=== PATIENT | male | born 1965 | race Caucasian/White ===

== ENCOUNTER 2016-05-18 23:50 | Observation (INO) | payer BC ==
[2016-05-19] MEDS ORDERED: ASPIRIN 81 MG CHEW PO STA (00:07)
[2016-05-19] MEDS ORDERED: NITROGLYCERIN OINT 1 INCH/GM PACKET TOPICAL STA (00:07)
--- NOTE | 2016-05-19 00:11 | ED ---
General Adult HPI - General Stated complaint: Heart Palp/SOB Time Seen by Provider: 05/19/16 00:00 Source: RN notes reviewed - History of Present Illness Initial comments: This is a 51-year-old male who has a past medical history significant for elevated cholesterol. Patient states he recently started medication for that. Patient states about a week ago he had a pain in the center of his chest lasts only a few seconds and he hasn't had it again. Patient states tonight while lying in bed he had a pain in the center of his chest again it didn't last longer than he became sweaty and short of breath and he states the sweatiness and the shortness of breath lasted about 5 minutes. Patient states at that point he got nervous and decided to come to the emergency department. Patient states currently he is not experiencing any chest pain or shortness of breath. Patient denies any radiation of the pain. Patient denies any nausea. Patient denies any abdominal pain patient denies nausea vomiting diarrhea. Patient denies any recent fever or chills or cough. Patient denies being lightheaded or dizzy. - Related Data Home Medications Medication Instructions Recorded Confirmed Atorvastatin Calcium [Lipitor] 10 mg PO HS 05/19/16 05/19/16 Multivitamins, Thera [Multivitamin] 1 tab PO DAILY 05/19/16 05/19/16 Allergies Allergy/AdvReac Type Severity Reaction Status Date / Time No Known Allergies Allergy Verified 05/19/16 00:10 Review of Systems ROS Statement: Those systems with pertinent positive or pertinent negative responses have been documented in the HPI. ROS Other: All systems not noted in ROS Statement are negative. General Exam - General Exam Comments Initial Comments: GENERAL: Patient is well-developed and well-nourished. Patient is nontoxic and well- hydrated and is in mild distress. ENT: Neck is soft and supple. No significant lymphadenopathy is noted. Oropharynx is clear. Moist mucous membranes. Neck has full range of motion without eliciting any pain. EYES: The sclera were anicteric and conjunctiva were pink and moist. Extraocular movements were intact and pupils were equal round and reactive to light. Eyelids were unremarkable. PULMONARY: Unlabored respirations. Good breath sounds bilaterally. No audible rales rhonchi or wheezing was noted. CARDIOVASCULAR: There is a regular rate and rhythm without any murmurs gallops or rubs. ABDOMEN: Soft and nontender with normal bowel sounds. No palpable organomegaly was noted. There is no palpable pulsatile mass. SKIN: Skin is clear with no lesions or rashes and otherwise unremarkable. NEUROLOGIC: Patient is alert and oriented x3. Cranial nerves II through XII are grossly intact. Motor and sensory are also intact. Normal speech, volume and content. Symmetrical smile. MUSCULOSKELETAL: Normal extremities with adequate strength and full range of motion. No lower extremity swelling or edema. No calf tenderness. LYMPHATICS: No significant lymphadenopathy is noted PSYCHIATRIC: Normal psychiatric evaluation. Normal interpersonal interactions appears functionally intact in deals appropriately with others. No signs of depression. No signs of anxiety. Course Vital Signs 05/18/16 05/19/16 23:55 01:17 Temperature 97.7 F Pulse Rate 72 76 Respiratory 18 16 Rate Blood Pressure 200/96 141/93 O2 Sat by Pulse 97 97 Oximetry Medical Decision Making - Medical Decision Making EKG shows normal sinus rhythm at 70 bpm. It was on a 56 QRS is 106 QT interval is 416 QTC is 449. Patient's EKG shows no ST segment elevation or depression. Patient had no chest pain while in the emergency department but because of the significant symptoms associated with his chest pain the diaphoresis and difficulty breathing I thought it best to keep him in the hospital repeat enzymes and have cardiology see him. I spoke with Dr. Ojeda and he was in agreement side wrote admitting orders and consult cardiology - Lab Data Result diagrams: 05/19/16 00:14 05/19/16 00:14 Lab Results 05/19/16 05/19/16 05/19/16 Range/Units 00:14 00:14 00:14 WBC 3.6 L (3.8-10.6) k/uL RBC 5.03 (4.30-5.90) m/uL Hgb 15.2 (13.0-17.5) gm/dL Hct 44.4 (39.0-53.0) % MCV 88.4 (80.0-100.0) fL MCH 30.3 (25.0-35.0) pg MCHC 34.2 (31.0-37.0) g/dL RDW 12.5 (11.5-15.5) % Plt Count 245 (150-450) k/uL Neutrophils % 56 % Lymphocytes % 32 % Monocytes % 6 % Eosinophils % 4 % Basophils % 1 % Neutrophils # 2.0 (1.3-7.7) k/uL Lymphocytes # 1.2 (1.0-4.8) k/uL Monocytes # 0.2 (0-1.0) k/uL Eosinophils # 0.1 (0-0.7) k/uL Basophils # 0.0 (0-0.2) k/uL PT (9.0-12.0) sec INR (<1.1) APTT (22.0-30.0) sec Sodium 142 (137-145) mmol/L Potassium 4.0 (3.5-5.1) mmol/L Chloride 106 (98-107) mmol/L Carbon Dioxide 25 (22-30) mmol/L Anion Gap 11 mmol/L BUN 16 (9-20) mg/dL Creatinine 0.90 (0.66-1.25) mg/dL Est GFR (MDRD) Af Amer >60 (>60 ml/min/1.73 sqM) Est GFR (MDRD) Non-Af >60 (>60 ml/min/1.73 sqM) Glucose 200 H (74-99) mg/dL Calcium 9.4 (8.4-10.2) mg/dL Magnesium 1.6 (1.6-2.3) mg/dL Total Bilirubin 0.4 (0.2-1.3) mg/dL AST 32 (17-59) U/L ALT 37 (21-72) U/L Alkaline Phosphatase 52 (38-126) U/L Total Creatine Kinase 128 (55-170) U/L CK-MB (CK-2) 2.1 (0.0-2.4) ng/mL CK-MB (CK-2) Rel Index 1.6 Troponin I <0.012 (0.000-0.034) ng/mL Total Protein 6.4 (6.3-8.2) g/dL Albumin 4.4 (3.5-5.0) g/dL 05/19/16 Range/Units 00:14 WBC (3.8-10.6) k/uL RBC (4.30-5.90) m/uL Hgb (13.0-17.5) gm/dL Hct (39.0-53.0) % MCV (80.0-100.0) fL MCH (25.0-35.0) pg MCHC (31.0-37.0) g/dL RDW (11.5-15.5) % Plt Count (150-450) k/uL Neutrophils % % Lymphocytes % % Monocytes % % Eosinophils % % Basophils % % Neutrophils # (1.3-7.7) k/uL Lymphocytes # (1.0-4.8) k/uL Monocytes # (0-1.0) k/uL Eosinophils # (0-0.7) k/uL Basophils # (0-0.2) k/uL PT 10.5 (9.0-12.0) sec INR 1.0 (<1.1) APTT 24.8 (22.0-30.0) sec Sodium (137-145) mmol/L Potassium (3.5-5.1) mmol/L Chloride (98-107) mmol/L Carbon Dioxide (22-30) mmol/L Anion Gap mmol/L BUN (9-20) mg/dL Creatinine (0.66-1.25) mg/dL Est GFR (MDRD) Af Amer (>60 ml/min/1.73 sqM) Est GFR (MDRD) Non-Af (>60 ml/min/1.73 sqM) Glucose (74-99) mg/dL Calcium (8.4-10.2) mg/dL Magnesium (1.6-2.3) mg/dL Total Bilirubin (0.2-1.3) mg/dL AST (17-59) U/L ALT (21-72) U/L Alkaline Phosphatase (38-126) U/L Total Creatine Kinase (55-170) U/L CK-MB (CK-2) (0.0-2.4) ng/mL CK-MB (CK-2) Rel Index Troponin I (0.000-0.034) ng/mL Total Protein (6.3-8.2) g/dL Albumin (3.5-5.0) g/dL Disposition Clinical Impression: Chest pain Disposition: ADMITTED IP TO THIS [facility] Time of Disposition: 01:26
[2016-05-19 00:26] LABS: Basophils % (A) 1 %; CH 32.3; CHCM 36.6; Eosinophils # (A) 0.1 k/uL (0-0.7); Eosinophils % (A) 4 %; HCT 44.4 % (39.0-53.0); HDW 2.81; HGB 15.2 gm/dL (13.0-17.5); Luc # (Auto) 0.08; Luc % (Auto) 2; Lymphocytes # (A) 1.2 k/uL (1.0-4.8); Lymphocytes % (A) 32 %; MCH 30.3 pg (25.0-35.0); MCHC 34.2 g/dL (31.0-37.0); MCV 88.4 fL (80.0-100.0); Mean Platelet Volume 6.3; Monocytes # (A) 0.2 k/uL (0-1.0); Monocytes % (A) 6 %; Neutrophils % (A) 56 %; RBC 5.03 m/uL (4.30-5.90); RDW 12.5 % (11.5-15.5); WBC 3.6 k/uL (3.8-10.6); WBC (Perox) 4.04
[2016-05-19 00:31] LABS: ALT 37 U/L (21-72); AST 32 U/L (17-59); Alkaline Phosphatase 52 U/L (38-126); Anion Gap 11 mmol/L; Blood Urea Nitrogen 16 mg/dL (9-20); Calcium 9.4 mg/dL (8.4-10.2); Carbon Dioxide 25 mmol/L (22-30); Chloride 106 mmol/L (98-107); Glucose 200 mg/dL (74-99); Magnesium 1.6 mg/dL (1.6-2.3); Non-African American GFR(MDRD) >60 (>60 ml/min/1.73 sqM); Partial Thromboplastin Time 24.8 sec (22.0-30.0); Prothrombin Time 10.5 sec (9.0-12.0); Sodium 142 mmol/L (137-145); Total Bilirubin 0.4 mg/dL (0.2-1.3); Total Protein 6.4 g/dL (6.3-8.2)
[2016-05-19 00:40] LABS: Creatine Kinase 128 U/L (55-170)
[2016-05-19 00:53] LABS: Creatine Kinase MB 2.1 ng/mL (0.0-2.4); Troponin I <0.012 ng/mL (0.000-0.034)
[2016-05-19] MEDS ORDERED: NITROGLYCERIN SL TABS 0.4 MG TAB SUBLINGUAL PRN (01:26)
--- NOTE | 2016-05-19 01:38 | XR ---
EXAMINATION TYPE: XR chest 2V DATE OF EXAM: 05/19/2016 12:34 AM COMPARISON: NONE HISTORY: History of chest discomfort TECHNIQUE: Frontal and lateral views of the chest are obtained. FINDINGS: There is no focal air space opacity, pleural effusion, or pneumothorax seen. The cardiac silhouette size is within normal limits. The osseous structures are intact. Mild degenerative drew es are present in the thoracic spine. IMPRESSION: No acute cardiopulmonary process.
[2016-05-19 02:13] VITALS: BMI 34.4
[2016-05-19] MEDS: NITROGLYCERIN OINT 1 INCH/GM PACKET TOPICAL SCH ×2 (06:18→12:14)
[2016-05-19 07:48] VITALS: RESP 18
[2016-05-19 08:00] LABS: Creatine Kinase 93 U/L (55-170)
[2016-05-19 08:09] LABS: Creatine Kinase MB 1.5 ng/mL (0.0-2.4); Troponin I <0.012 ng/mL (0.000-0.034)
--- NOTE | 2016-05-19 08:26 | P.CRDCN ---
History of Present Illness Consult date: 05/19/16 Chief complaint: Chest pain History of present illness: This is a pleasant 51-year-old gentleman who is very active with a past medical history significant for dyslipidemia came in to the emergency room with chest discomfort. He was in his usual state of health yesterday when he experienced very brief episode of chest discomfort, in the mid of the chest, he describes as an electrical/discomfort feeling in the mid of the chest lasted only for a few seconds. Subsequently he experienced sweating and weakness. No shortness of breath. No dizziness or lightheadedness. No syncope. The cardiac workup of EKG and enzymes came in to be unremarkable. I am proceeding with an exercise treadmill stress test and I will continue following up with him Past Medical History Past Medical History: Hyperlipidemia History of Any Multi-Drug Resistant Organisms: None Reported Past Surgical History: Tonsillectomy Past Anesthesia/Blood Transfusion Reactions: No Reported Reaction Past Psychological History: No Psychological Hx Reported Smoking Status: Never smoker Past Alcohol Use History: Occasional Past Drug Use History: None Reported - Past Family History Mother Family Medical History: Cancer Additional Family Medical History / Comment(s): Lung CA Father Family Medical History: Hyperlipidemia, Hypertension Medications and Allergies Home Medications Medication Instructions Recorded Confirmed Type Atorvastatin Calcium [Lipitor] 10 mg PO HS 05/19/16 05/19/16 History Christel 500 mg PO DAILY 05/19/16 05/19/16 History Gluc/Stas-MSM#1/C/[place]/Bor 1 tab PO DAILY 05/19/16 05/19/16 History [Glucosamine-Chondroitin Tablet] Multivitamins, Thera [Multivitamin] 1 tab PO DAILY 05/19/16 05/19/16 History Turmeric Root Extract [Turmeric] 500 mg PO DAILY 05/19/16 05/19/16 History Allergies Allergy/AdvReac Type Severity Reaction Status Date / Time No Known Allergies Allergy Verified 05/19/16 08:11 Physical Exam Vitals: Vital Signs Temp Pulse Pulse Resp BP BP BP 05/19/16 08:00 56 L 18 05/19/16 07:48 97.7 F 56 L 18 149/84 05/19/16 04:00 16 05/19/16 02:25 16 05/19/16 02:11 97.8 F 63 16 136/84 05/19/16 01:50 74 16 136/80 Pulse Ox 05/19/16 08:00 05/19/16 07:48 98 05/19/16 04:00 05/19/16 02:25 05/19/16 02:11 94 L 05/19/16 01:50 97 Intake and Output 05/18/16 05/19/16 05/19/16 22:59 06:59 14:59 Other: # Voids 1 Weight 108.8 kg - Constitutional General appearance: no acute distress - Respiratory Respiratory: bilateral: CTA - Cardiovascular Rhythm: regular Heart sounds: normal: S1, S2 Results 05/19/16 00:14 05/19/16 00:14 Cardiac Enzymes 05/19/16 Range/Units 06:40 CK-MB (CK-2) 1.5 (0.0-2.4) ng/mL Troponin I <0.012 (0.000-0.034) ng/mL Current Medications Generic Name Dose Route Start Last Admin Trade Name Freq PRN Reason Stop Dose Admin Aspirin 325 mg 05/20/16 09:00 Aspirin PO DAILY EMILIA Nitroglycerin 1 inch 05/19/16 06:00 05/19/16 06:18 Nitro-Bid Oint TOPICAL 1 inch Q6HR EMILIA Administration Nitroglycerin 0.4 mg 05/19/16 01:26 Nitrostat SUBLINGUAL Q5M PRN Chest Pain Intake and Output 05/18/16 05/19/16 05/19/16 22:59 06:59 14:59 Other: # Voids 1 Weight 108.8 kg Assessment and Plan Plan: Assessment #1 atypical chest discomfort #2 dyslipidemia Plan #1 the patient was ruled out for acute coronary event #2 I am proceeding with exercise treadmill stress test
[2016-05-19 12:06] VITALS: BP 161/80; PULSE 65; TEMP 97.5
--- NOTE | 2016-05-19 13:34 | EST ---
DATE OF SERVICE: 05/19/16 AGE: 51Y SEX: M HT: 70" WT: 239 lbs. Protocol [place]: Other: Stage: IV Dur. of Exercise: 9:30 *Heart Rate Blood Pressure *Rest: 70 Rest: 138/100 * *Max. Achieved: 147 Maximum BP: 199/58 85% PMHR: 142 100% PMHR: 167 *METS: 10.9 INDICATIONS: Chest pain. MEDICATIONS: Baseline EKG revealed normal sinus rhythm without significant ST-T changes. Patient walked on standard [place] protocol for 9-1/2 minutes, achieved a maximum heart rate of 147 beats per minute well above 85% of predicted maximal. He developed fatigue and shortness of breath, but did not have any angina or arrhythmia. EKG did not reveal any ST segment changes to indicate ischemia. By EKG is a negative stress test with fair exercise capacity.
--- NOTE | 2016-05-19 13:51 | P.HPIM ---
History of Present Illness H&P Date: 05/19/16 Chief Complaint: Chest pain This is a medical H&P and discharge summary combined: Patient is a 51-year-old male with past medical history significant for hyperlipidemia. Patient presented to the emergency department with complaints of chest pain that started while he was lying in bed in the center of his chest described as a "zing" only lasting a few seconds associated with nausea and diaphoresis. Cardiology consult was requested. Cardiac workup of EKG and enzymes were unremarkable. Patient underwent exercise treadmill stress test which was negative. Patient was deemed stable for discharge to home with follow-up in the outpatient setting. Discharge diagnoses: 1. Chest pain, noncardiac in origin. 2. Hyperlipidemia. The above impression and plan have been discussed and directed by Dr. Ojeda. Shae RÍOS acting as scribe for Dr. Ojeda. Past Medical History Past Medical History: Hyperlipidemia History of Any Multi-Drug Resistant Organisms: None Reported Past Surgical History: Tonsillectomy Past Anesthesia/Blood Transfusion Reactions: No Reported Reaction Past Psychological History: No Psychological Hx Reported Smoking Status: Never smoker Past Alcohol Use History: Occasional Past Drug Use History: None Reported - Past Family History Mother Family Medical History: Cancer Additional Family Medical History / Comment(s): Lung CA Father Family Medical History: Hyperlipidemia, Hypertension Medications and Allergies Home Medications Medication Instructions Recorded Confirmed Type RX: Atorvastatin Calcium [Lipitor] 10 mg PO HS 05/19/16 05/19/16 History RX: Christel 500 mg PO DAILY 05/19/16 05/19/16 History RX: Gluc/Stas-MSM#1/C/[place] 1 tab PO DAILY 05/19/16 05/19/16 History [Glucosamine-Chondroitin Tablet] RX: Multivitamins, Thera 1 tab PO DAILY 05/19/16 05/19/16 History [Multivitamin] RX: Turmeric Root Extract 500 mg PO DAILY 05/19/16 05/19/16 History [Turmeric] Allergies Allergy/AdvReac Type Severity Reaction Status Date / Time No Known Allergies Allergy Verified 05/19/16 08:11 Physical Exam Vitals: Vital Signs Temp Pulse Pulse Resp BP BP BP 05/19/16 12:00 97.5 F L 65 18 161/80 05/19/16 08:00 56 L 18 05/19/16 07:48 97.7 F 56 L 18 149/84 05/19/16 04:00 16 05/19/16 02:25 16 05/19/16 02:11 97.8 F 63 16 136/84 05/19/16 01:50 74 16 136/80 Pulse Ox 05/19/16 12:00 94 L 05/19/16 08:00 05/19/16 07:48 98 05/19/16 04:00 05/19/16 02:25 05/19/16 02:11 94 L 05/19/16 01:50 97 Intake and Output 05/18/16 05/19/16 05/19/16 22:59 06:59 14:59 Intake Total 118 Balance 118 Intake: Oral 118 Other: # Voids 1 Weight 108.8 kg GENERAL: Pt awake and alert, well-appearing, well-nourished, and in no acute distress. HEAD: Atraumatic, normocephalic. EYES: Pupils equal, round, and reactive to light, extraocular movements intact, sclera anicteric, conjunctiva are normal. ENT: Oropharynx clear without exudates. Moist mucous membranes. NECK:Normal range of motion, supple without lymphadenopathy or JVD. LUNGS: Breath sounds clear to auscultation bilaterally. No wheezes, rales, or rhonchi. HEART: Heart S1, S2, no S3 or S4. Regular rate and rhythm. No murmurs, rubs or gallops. ABDOMEN: Soft, nontender, nondistended, normoactive bowel sounds. No guarding, no rebound. No masses or organomegaly appreciated. EXTREMITIES: 2+ peripheral pulses. No edema, clubbing or cyanosis. No calf tenderness. NEUROLOGICAL: Pt oriented x 3. Cranial nerves II through XII grossly intact. Strength and sensation grossly intact. PSYCH: Normal mood, normal affect. SKIN: Warm, dry, intact. Normal turgor. No rashes or lesions. Results CBC & Chem 7: 05/19/16 00:14 05/19/16 00:14 Thrombosis Risk Factor Assmnt - DVT/VTE Prophylaxis DVT/VTE Prophylaxis: Low risk, early ambulation encouraged - Choose All That Apply Each Factor Represents 1 point: Age 41-60 years Thrombosis Risk Factor Assessment Total Risk Factor Score: 1 Thrombosis Risk Factor Assessment Level: Low Risk Assessment and Plan Plan: Discharge diagnoses: 1. Chest pain, noncardiac in origin. 2. Hyperlipidemia. The above impression and plan have been discussed and directed by James. Shae RÍOS acting as scribe for Dr. Ojeda.
[2016-05-19 14:00] LABS: Creatine Kinase 90 U/L (55-170)
[2016-05-19 14:14] LABS: Creatine Kinase MB 1.4 ng/mL (0.0-2.4); Troponin I <0.012 ng/mL (0.000-0.034)
[2016-05-20] MEDS ORDERED: ASPIRIN 325 MG TAB PO SCH (09:00)
== END 2016-05-19 14:40 | disposition home or self-care (01) ==
LOC: EC 23:50 → 3OBS 05-19 01:26
PROVIDERS: ADMIT Family Medicine; ATTEND Family Medicine
DX: R07.89 Other chest pain (principal); E78.5 Hyperlipidemia, unspecified; R61 Generalized hyperhidrosis; R06.02 Shortness of breath; Z79.899 Other long term (current) drug therapy; Z80.1 Family history of malignant neoplasm of trachea, bronchus and lung; Z82.49 Family history of ischemic heart disease and other diseases of the circulatory system
CPT/HCPCS: 99285; 36415; 93005; 93017; 80053; 82550; 82553; 83735; 84484; 85025; 85610; 85730; 71020; G0378

== ENCOUNTER → 2023-03-06 | Outpatient (CLI) | payer BC ==
[2023-03-06 21:07] LABS: Alternaria alternata IgE <0.10 kU/L; Aspergillus fumagatus IgE <0.10 kU/L; Birch IgE <0.10 kU/L; Cat Epith & Dander IgE <0.10 kU/L; Cladosporian herbarum IgE <0.10 kU/L; Clam IgE <0.10 kU/L; Cockroach IgE <0.10 kU/L; Codfish IgE <0.10 kU/L; Dermato. farinae IgE <0.10 kU/L; Dog Dander IgE <0.10 kU/L; Egg White IgE <0.10 kU/L; Elm IgE <0.10 kU/L; Maple (Box Elder) IgE <0.10 kU/L; Oak IgE <0.10 kU/L; Peanut IgE <0.10 kU/L; Ragweed,Common IgE <0.10 kU/L; Red Top (Bentgrass) IgE <0.10 kU/L; Scallop IgE <0.10 kU/L; Shrimp IgE <0.10 kU/L; Soybean IgE <0.10 kU/L; Walnut IgE (Food) <0.10 kU/L
== END | disposition home or self-care (01) ==
LOC: LABWHC1 09:59
PROVIDERS: ATTEND Internal Medicine Critical Care Medicine
DX: R05.9 Cough, unspecified (principal)
CPT/HCPCS: 36415; 82785; 85008; 86003

== ENCOUNTER 2023-04-29 12:47 | Day surgery (SDC) | payer BC ==
[2023-04-24 09:43] VITALS: BMI 37.3
[~2023-04-29 12:47] MED LIST: ATROPINE SULFATE 0.4 MG/ML 1 ML VIAL IM ONE; LACTATED RINGERS 1,000 ML IV SCH
[2023-04-29] MEDS ORDERED: LACTATED RINGERS 1,000 ML IV ONE (13:40)
[2023-04-29] MEDS ORDERED: hydrALAZINE HCL 20 MG/ML 1 ML VIAL IVP ONE (13:52)
[2023-04-29] MEDS ORDERED: GLYCOPYRROLATE 0.2 MG/ML 2 ML VIAL ONE (13:58)
[2023-04-29] MEDS ORDERED: PROPOFOL 10 MG/ML 20 ML VIAL IV ONE (13:58)
[2023-04-29] MEDS ORDERED: LIDOCAINE 1% INJ 10MG/ML (20 ML MDV) ONE (13:58)
[2023-04-29] MEDS ORDERED: KETAMINE HCL IN 0.9 % NACL 50 MG/5 ML SYRINGE ONE (13:58)
[2023-04-29] MEDS ORDERED: MIDAZOLAM 2 MG/2 ML VIAL ONE (13:58)
[2023-04-29] MEDS ORDERED: LIDOCAINE 2% INJ 20 MG/ML INTRATRACH ONE (14:03)
[2023-04-29 14:08] VITALS: TEMP 96.9
[2023-04-29 14:33] VITALS: PULSE 89; RESP 18
[2023-04-29 14:34] VITALS: BP 149/87
--- NOTE | 2023-04-29 21:29 | PCN ---
PROCEDURE NOTE PROCEDURE: Airway examination, therapeutic lavage, BAL bronchoscopy. PREOPERATIVE DIAGNOSIS: Chronic bronchitis and significant chronic secretions. POSTOPERATIVE DIAGNOSIS: Chronic bronchitis and significant chronic secretions. [employer] SENIOR SERGEANT: Dr. Argelia Javier. DESCRIPTION OF PROCEDURE: There was informed consent and universal timeout. The patient's procedure took place in [facility] room #1. Anesthesia provided general anesthesia. Once the patient was adequately sedated and being fully anesthetized, the bronchoscope was inserted through the right nostril. It passed through the right nasopharynx into the oropharynx. The hypopharynx was identified and topicalized. The hypopharyngeal structures, including anterior commissure, true cords, false cords, arytenoids, piriform sinuses, right and left, vallecula, epiglottis, all appeared relatively normal. The glottic opening was topicalized. The bronchoscope was pushed through the glottic opening into the trachea. There was a mild degree of tracheomalacia. There was some secretions noted throughout the trachea. They were rather thin. There was no tracheal mass or tumor. Tracheal virgil was sharp. Right and left mainstem were topicalized. The right upper lobe and its 3 segments, right middle lobe and its 2 segments, right lower lobe and its 5 segments, left upper lobe proper and its 2 segments, lingula and its 2 segments, and left lower lobe and its 4 segments all appeared relatively normal save for mild bronchitis. There was mild erythema and hyperemia of the airways. There was minimal vascular engorgement. There was no mass or tumor. The secretions were rather thin. There was no bleeding. The bronchoscope was then wedged into the right middle lobe. We did a formal BAL. The fluid was a bit turbid. 30 mL of fluid was recovered. The fluid will be sent for analysis including cytology and microbiology. After the procedure, the bronchoscope was withdrawn and the patient will be recovered. There were no immediate complications. I did speak to the patient's family member. MMODL / IJN: [id number] /
[2023-04-30 03:34] LABS: Appearance,BF Clear (Clear)
== END 2023-04-29 15:02 | disposition home or self-care (01) ==
LOC: ORWHC2ENDO 12:47
PROVIDERS: ATTEND Internal Medicine Critical Care Medicine
DX: J42 Unspecified chronic bronchitis (principal); E78.5 Hyperlipidemia, unspecified; K21.9 Gastro-esophageal reflux disease without esophagitis; Z79.51 Long term (current) use of inhaled steroids; Z79.899 Other long term (current) drug therapy; Z96.641 Presence of right artificial hip joint; Z98.890 Other specified postprocedural states
CPT/HCPCS: 89050; 87070; 87205; 87116; 87102; 87206; 31624; J2001 ×2; J2250; J0360; J0461; J2704; 88108; 88305